=== PATIENT | male | born 1955 ===

== ENCOUNTER 2025-11-12 08:00 | Day surgery (SDC) | payer OTHER ==
[2025-11-08 13:38] LABS: BASO % 0.6 % (0.1-1.2); EOS # 0.06 (0.04-0.54); EOS % 1.3 % (0.7-7.0); LYMPH # 1.71 (1.18-3.74); LYMPH % 35.8 % (19.3-53.1); MEAN PLATELET VOLUME 9.50 fl (9.4-12.4); MONO # 0.44 (0.24-0.82); MONO % 9.2 % (4.7-12.5); NEUT # 2.53 (1.56-6.13); NEUT % 52.9 % (34.0-71.1); RED CELL DISTRIBUTION WIDTH 11.4 % (11.6-14.4)
[2025-11-08 13:56] VITALS: BP 146/77
[2025-11-08 13:58] LABS: URINE APPEARANCE Clear; URINE BILIRRUBIN Negative (NEGATIVE); URINE BLOOD Negative; URINE COLOR Yellow; URINE GLUCOSE Negative (NEGATIVE); URINE KETONE Trace (NEGATIVE); URINE LEUKOCYTE Negative; URINE NITRATE Negative; URINE PROTEIN Negative (NEGATIVE); URINE UROBILINOGEN 0.2 E.U./dl
[2025-11-08 14:02] LABS: URINE RBC 2.1 uL (0.0-20.8)
[2025-11-08 14:04] LABS: INR 1.01
[2025-11-08 14:06] LABS: URINE BACTERIA 2.2 uL (0.0-1933); URINE CAST 0.14 uL (0.0-1.40); URINE EPITHELIAL CELLS 0.4 uL (0.0-38.8); URINE WBC 1.6 uL (0.0-23.2)
[2025-11-08 14:41] LABS: ALT/SGPT 45.0 U/L (12-78); AST/SGOT 28.0 U/L (15-37); BILIRUBIN TOTAL 1.2 mg/dL (0.3-1.2); BUN CREA RATIO 22.0 (7.0-25.0); CHOL HDL RATIO 3.0 (0-5.0); CREATININE SERUM 0.93 mg/dL (0.70-1.30); GFR 80.56; GLOBULINA 3.0 G/DL (2.4-3.5); GLUCOSE FASTING 84.0 mg/dL (65-100); HDL 53.0 mg/dl (40-60); LDL 94.0 mg/dl (0-130); OSMOLALITY SERUM 285.0 MOSM/KG (275-295); VLDL 13.0 (0-39)
[~2025-11-12] VITALS: Ht 177.8 cm; Wt 88.5 kg
[~2025-11-12 08:00] MED LIST: ATORVASTATIN CA10 MG
[2025-11-12] MEDS ORDERED: CEFAZOLIN SODIUM 1,000 MG VIAL ONE (08:16)
[2025-11-12] MEDS ORDERED: BUPIVACAINE HCL/MPF 0.5% 30ML VIAL ONE (10:08)
[2025-11-12] MEDS ORDERED: POVIDONE-IODINE 118 ML BOTT TOP ONE (10:09)
[2025-11-12] MEDS ORDERED: SUGAMMADEX SODIUM 200 MG/2 ML VIAL IV ONE (11:36)
[2025-11-12] MEDS ORDERED: ALEVE220 M1 PO (11:47)
[2025-11-12] MEDS ORDERED: PERCOCET 5-3251 EACH PO (11:47)
[2025-11-12] MEDS ORDERED: DUI500 PO (11:47)
== END 2025-11-12 15:40 | disposition home or self-care (01) ==
LOC: CIR.AMB 08:00
PROVIDERS: ATTEND Orthopaedic Surgery
DX: S46.012A Strain of muscle(s) and tendon(s) of the rotator cuff of left shoulder, initial encounter (principal); M19.012 Primary osteoarthritis, left shoulder; M25.512 Pain in left shoulder